=== PATIENT | male | born 1965 ===

== ENCOUNTER 2017-07-23 15:16 | Emergency (ER) | payer SELFPAY ==
[2017-07-23 15:28] VITALS: BP 121/77; PULSE 79; RESP 18; TEMP 98.4; O2SAT 99
--- NOTE | 2017-07-23 16:28 | C.PDOC ---
History Of Present Illness 52 y/o male c/o bilateral knee pain and right achilles tendon pain which has been present for the past few decades and became worse over the past few days. Pt states that he has been taking Ibuprofen or Tylenol for his pain. Pt reports that he has not seen a PCP for many years. Denies recent trauma, injuries, swelling to joints, fever, and chills. Time Seen by Provider: 07/23/17 15:30 Chief Complaint (Nursing): Lower Extremity Problem/Injury History Per: Patient History/Exam Limitations: no limitations Onset/Duration Of Symptoms: Days Current Symptoms Are (Timing): Still Present Severity: Moderate Past Medical History Reviewed: Historical Data, Nursing Documentation, Vital Signs Vital Signs: Last Vital Signs Temp 98.4 F 07/23/17 15:26 Pulse 79 07/23/17 15:26 Resp 18 07/23/17 15:26 BP 121/77 07/23/17 15:26 Pulse Ox 99 07/23/17 17:06 - Medical History PMH: No Chronic Diseases Surgical History: No Surg Hx Family History: States: No Known Family Hx - Social History Hx Alcohol Use: Yes Hx Substance Use: No - Immunization History Hx Tetanus Toxoid Vaccination: No Hx Influenza Vaccination: No Hx Pneumococcal Vaccination: No Review Of Systems Constitutional: Negative for: Fever, Chills Musculoskeletal: Positive for: Leg Pain (bilateral knee pain), Other (right achilles tendon pain) Neurological: Negative for: Weakness, Numbness Physical Exam - Physical Exam Appears: Well, Non-toxic, No Acute Distress Skin: Warm, Dry Head: Atraumatic, Normacephalic Eye(s): bilateral: Normal Inspection Nose: Normal Oral Mucosa: Moist Neck: Supple Chest: Symmetrical Cardiovascular: Rhythm Regular Respiratory: Normal Breath Sounds, No Rales, No Rhonchi, No Wheezing Extremity: Normal ROM (bilateral knees), Tenderness (mild diffuse tenderness to bilateral knees), No Pedal Edema, No Calf Tenderness, No Swelling Neurological/Psych: Oriented x3, Normal Speech, Normal Motor, Normal Sensation Gait: Steady ED Course And Treatment O2 Sat by Pulse Oximetry: 99 (RA) Pulse Ox Interpretation: Normal Medical Decision Making Medical Decision Making: Plan: --Motrin 600 mg PO Disposition Counseled Patient/Family Regarding: Diagnosis, Need For Followup, Rx Given - Disposition Referrals: Joe Bonds MD [Staff Provider] - [facility] [Outside] Disposition: HOME/ ROUTINE Disposition Time: 16:25 Condition: GOOD Additional Instructions: Please take ibuprofen as prescribed. Follow up in medical clinic for a regular check up and with Dr Giancarlo Gomez for your knee pain. Prescriptions: Ibuprofen [Motrin] 600 mg PO TID #30 tab Instructions: Chronic Knee Pain (DC) Forms: [facility] (Hungarian), General Discharge Instructions - Clinical Impression Clinical Impression: Chronic pain of both knees - PA / AGRICULTURE SCIENTIST / Resident Statement MD/DO has reviewed & agrees with the documentation as recorded. - Scribe Statement The provider has reviewed the documentation as recorded by the Terrell Sánchez Provider Attestation All medical record entries made by the Yossiibkeerthi were at my direction and personally dictated by me. I have reviewed the chart and agree that the record accurately reflects my personal performance of the history, physical exam, medical decision making, and the department course for this patient. I have also personally directed, reviewed, and agree with the discharge instructions and disposition.
== END 2017-07-23 16:41 | disposition home or self-care (01) ==
LOC: C.ER 15:16
DX: G89.29 Other chronic pain (principal); M25.562 Pain in left knee; M25.561 Pain in right knee